=== PATIENT | female | born 1975 | race American Indian/Alaskan Native ===

== ENCOUNTER 2018-04-18 07:15 | Emergency (ER) | payer SELFPAY ==
[2018-04-18 07:26] VITALS: BP 138/87
[2018-04-18] MEDS ORDERED: TYLENOL PO ONE (08:23)
[2018-04-18] MEDS ORDERED: REGLAN PO ONE (08:23)
[2018-04-18] MEDS ORDERED: ZITHROMAX PO ONE (08:23)
--- NOTE | 2018-04-18 08:23 | Emergency Department Report ---
ED Headache HPI - General Chief Complaint: Headache Stated Complaint: FLU LIKE SYMPTOMS Time Seen by Provider: 04/18/18 08:10 Source: patient Exam Limitations: no limitations - History of Present Illness Timing/Duration: constant Quality: mild Head Injury Location: frontal Recent Head Trauma: no recent headache/trauma Modifying Factors: improves with: cold therapy Associated Symptoms: denies symptoms Allergies/Adverse Reactions: Allergies Penicillins Allergy (Verified 04/18/18 08:58) Rash Home Medications: Ambulatory Orders Azithromycin [Zithromax TAB] 500 mg PO QDAY #7 tablet 04/18/18 Ibuprofen [Motrin] 800 mg PO Q8HR PRN #20 tablet 04/18/18 ED Review of Systems ROS: Stated complaint: FLU LIKE SYMPTOMS Other details as noted in HPI Comment: All other systems reviewed and negative Constitutional: denies: chills, fever Eyes: denies: eye pain, eye discharge, vision change ENT: denies: ear pain, throat pain Respiratory: cough. denies: shortness of breath, wheezing Cardiovascular: denies: chest pain, palpitations Endocrine: no symptoms reported Gastrointestinal: denies: abdominal pain, nausea, diarrhea Genitourinary: denies: urgency, dysuria, discharge Musculoskeletal: denies: back pain, joint swelling, arthralgia Skin: denies: rash, lesions Neurological: headache. denies: weakness, numbness, paresthesias Psychiatric: denies: anxiety, depression Hematological/Lymphatic: denies: easy bleeding, easy bruising ED Past Medical Hx - Past Medical History Hx Hypertension: Yes - Surgical History Past Surgical History?: Yes Additional Surgical History: - Social History Smoking Status: Never Smoker Substance Use Type: None - Medications Home Medications: Home Medications Medication Instructions Recorded Confirmed Last Taken Type Azithromycin [Zithromax TAB] 500 mg PO QDAY #7 tablet 04/18/18 Unknown Rx Ibuprofen [Motrin] 800 mg PO Q8HR PRN #20 tablet 04/18/18 Unknown Rx ED Physical Exam - General Limitations: No Limitations General appearance: alert, in no apparent distress - Head Head exam: Present: atraumatic, normocephalic - Eye Eye exam: Present: normal appearance, PERRL - ENT ENT exam: Present: normal exam, normal orophraynx, mucous membranes moist, other (Facial tenderness to percusion.) - Neck Neck exam: Present: normal inspection - Respiratory Respiratory exam: Present: normal lung sounds bilaterally. Absent: respiratory distress - Cardiovascular Cardiovascular Exam: Present: regular rate, normal rhythm, normal heart sounds. Absent: systolic murmur, diastolic murmur, rubs, gallop - GI/Abdominal GI/Abdominal exam: Present: soft, normal bowel sounds - Extremities Exam Extremities exam: Present: normal inspection, full ROM, normal capillary refill - Back Exam Back exam: Present: normal inspection, full ROM - Neurological Exam Neurological exam: Present: alert, oriented X3, CN II-XII intact - Psychiatric Psychiatric exam: Present: normal affect, normal mood - Skin Skin exam: Present: warm, dry, intact, normal color. Absent: rash ED Course Vital Signs 04/18/18 07:21 Temperature 99.6 F Pulse Rate 91 H Respiratory 16 Rate Blood Pressure 138/87 O2 Sat by Pulse 98 Oximetry - Reevaluation(s) Reevaluation #1: 04/18/18 10:07 Patient is an much better after receiving treatment in the emergency room and she is afraid to go home. ED Medical Decision Making - Medical Decision Making Acute Sinusitis. Critical care attestation.: If time is entered above; I have spent that time in minutes in the direct care of this critically ill patient, excluding procedure time. ED Disposition Clinical Impression: Acute sinusitis Qualifiers: Sinusitis location: frontal Recurrence: non-recurrent Qualified Code(s): J01.10 - Acute frontal sinusitis, unspecified Disposition: - TO HOME OR SELFCARE Is pt being admited?: No Does the pt Need Aspirin: No Condition: Stable Instructions: Sinusitis (ED) Additional Instructions: Please follow up with your regular doctor tomorrow morning is you ar not feeling better. Return to the ED if your condition worsens. Prescriptions: Azithromycin [Zithromax TAB] 500 mg PO QDAY #7 tablet Ibuprofen [Motrin] 800 mg PO Q8HR PRN #20 tablet PRN Reason: Pain , Severe (7-10) Referrals: PRIMARY CARE, [Primary Care Provider] - 3-5 Days Time of Disposition: 10:08
[2018-04-18] MEDS ORDERED: TORADOL IM ONE (08:24)
[2018-04-18] MEDS ORDERED: BANOPHEN PO ONE (08:24)
[2018-04-18] MEDS ORDERED: BENADRYL PO ONE ×2 (08:51→08:54)
== END 2018-04-18 10:19 | disposition home or self-care (01) ==
LOC: ED 07:15
DX: J01.10 Acute frontal sinusitis, unspecified (principal); I10 Essential (primary) hypertension
CPT/HCPCS: 96372; 99282; J1885